=== PATIENT | male | born 1980 | race American Indian/Alaskan Native ===

== ENCOUNTER 2022-02-23 11:46 | Emergency (ER) | payer BC, OTHER ==
[2022-02-23] MEDS ORDERED: KETOROLAC 30 MG/1 ML INJ IM ONE (15:58)
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
[2022-02-23 16:25] VITALS: BP 151/78
== END 2022-02-23 16:30 | disposition home or self-care (01) ==
LOC: ED 11:46
DX: M54.9 Dorsalgia, unspecified (principal); R51.9 Headache, unspecified; V89.2XXA Person injured in unspecified motor-vehicle accident, traffic, initial encounter; Y93.89 Activity, other specified; Y92.89 Other specified places as the place of occurrence of the external cause; Y99.8 Other external cause status
CPT/HCPCS: 96372; 99282; J1885